=== PATIENT | male | born 1945 | race Two or more races ===

== ENCOUNTER 2024-12-07 20:07 | Emergency (ER) | payer OTHER ==
[~2024-12-07] VITALS: Ht 175.3 cm; Wt 80.3 kg
[2024-12-07] MEDS ORDERED: PEPCID AC20 MG (20:25)
[2024-12-07] MEDS ORDERED: SYNTHROID50 MCG (20:25)
[2024-12-07] MEDS ORDERED: SIMVASTATIN5 MG (20:26)
[2024-12-07] MEDS ORDERED: DOXAZOSIN MESYLA2 MG (20:26)
[2024-12-07] MEDS ORDERED: KETOROLAC TROMETHAMINE 15 MG VIAL IM STA (21:10)
[2024-12-07 21:45] LABS: BASO % 0.7 % (0.1-1.2); EOS # 0.20 (0.04-0.54); EOS % 2.9 % (0.7-7.0); LYMPH # 0.72 (1.18-3.74); LYMPH % 10.5 % (19.3-53.1); MEAN PLATELET VOLUME 11.00 fl (9.4-12.4); MONO # 0.52 (0.24-0.82); MONO % 7.6 % (4.7-12.5); NEUT # 5.31 (1.56-6.13); NEUT % 77.9 % (34.0-71.1); RED CELL DISTRIBUTION WIDTH 12.5 % (11.6-14.4)
[2024-12-07 21:46] LABS: ERYTHROCYTE SEDIMENTATION RATE 7 mm/hr (0-20)
[2024-12-07 22:12] LABS: BUN CREA RATIO 23.0 (7.0-25.0); CREATININE SERUM 1.2 mg/dL (0.70-1.30); GFR 58.71; GLUCOSE FASTING 128.0 mg/dL (65-100); OSMOLALITY SERUM 288.0 MOSM/KG (275-295)
[2024-12-07] MEDS ORDERED: INDOMETHACIN50 MG PO (23:21)
[2024-12-07] MEDS ORDERED: COLCRYS0.6 MG PO (23:21)
[2024-12-08 00:10] LABS: URINE APPEARANCE CLEAR; URINE BILIRRUBIN NEGATIVE (NEGATIVE); URINE BLOOD TRACES; URINE COLOR YELLOW; URINE GLUCOSE NEGATIVE (NEGATIVE); URINE KETONE NEGATIVE (NEGATIVE)
[2024-12-08 00:11] LABS: URINE BACTERIA FEW; URINE LEUKOCYTE NEGATIVE; URINE NITRATE NEGATIVE; URINE PROTEIN NEGATIVE (NEGATIVE); URINE RBC 0-3 /HPF; URINE UROBILINOGEN 0.2 E.U./dl
== END 2024-12-08 00:21 | disposition home or self-care (01) ==
LOC: ER 20:07
PROVIDERS: Emergency Medicine
DX: M10.9 Gout, unspecified (principal); I10 Essential (primary) hypertension; E03.8 Other specified hypothyroidism
CPT/HCPCS: 36415; 73620; 96372; 99283; J1885